=== PATIENT | male | born 1950 | race Native Hawaiian/Other Pacific Islander ===

== ENCOUNTER 2019-11-11 23:45 | Emergency (ER) | payer OTHER ==
[~2019-11-11] VITALS: Ht 167.6 cm; Wt 80.3 kg
[2019-11-12 00:42] VITALS: BP 184/87; TEMP 99.2
== END 2019-11-12 00:42 | disposition home or self-care (01) ==
LOC: ED 23:45
DX: K08.89 Other specified disorders of teeth and supporting structures (principal); F17.210 Nicotine dependence, cigarettes, uncomplicated
CPT/HCPCS: 96372; 99283; J0696; J1885

== ENCOUNTER 2021-08-07 19:02 | Emergency (ER) | payer OTHER ==
[~2021-08-07] VITALS: Ht 167.6 cm; Wt 80.3 kg
[2021-08-07 21:35] VITALS: BP 124/56; TEMP 98.6
== END 2021-08-07 21:35 | disposition home or self-care (01) ==
LOC: ED 19:02
DX: S29.011A Strain of muscle and tendon of front wall of thorax, initial encounter (principal); S22.32XA Fracture of one rib, left side, initial encounter for closed fracture; X58.XXXA Exposure to other specified factors, initial encounter; Y92.89 Other specified places as the place of occurrence of the external cause
CPT/HCPCS: 99283; J1885

== ENCOUNTER 2022-03-19 21:57 | Emergency (ER) | payer OTHER ==
[~2022-03-19] VITALS: Ht 167.6 cm; Wt 81.6 kg
[2022-03-19 23:12] VITALS: BP 179/87; TEMP 98
== END 2022-03-19 23:12 | disposition home or self-care (01) ==
LOC: ED 21:57
PROC: 2W2FX4Z Dressing of Left Hand using Bandage (ICD-10-PCS; principal; 2022-03-19)
DX: T23.252A Burn of second degree of left palm, initial encounter (principal); T31.0 Burns involving less than 10% of body surface; X15.3XXA Contact with hot saucepan or skillet, initial encounter; Y92.89 Other specified places as the place of occurrence of the external cause
CPT/HCPCS: 90471; 90715; 96372; 99283; J2270; J2405